=== PATIENT | male | born 1955 | race Caucasian/White ===

== ENCOUNTER → 2016-08-28 | Outpatient (CLI) | payer BC ==
[~2016-08-28] MED LIST: AMLO-110 PO; ESCI10TA17 PO; RAMI5CAP PO
--- NOTE | 2016-08-28 08:38 | DIAGNOSTIC IMAGING REPORT ---
FUSION CT SINUSES W/O HISTORY:61 [id number] Chronic sinusitis COMPARISON: 07/18/2011. TECHNIQUE: Multiple axial CT images of the paranasal sinuses were obtained without IV contrast utilizing fusion technique. Coronal reformatted images were obtained from the axial data set and cemented for review. FINDINGS: Large polypoid mucosal thickening of the right maxillary sinus is seen, 3.6 x 2.6 x 3.3 cm in AP, transverse and coronal caudal dimension. There is improved aeration of the right maxillary sinus from comparison. There is mild mucosal thickening of the right maxillary ostium medial complex which is patent. There is multifocal progressive polypoid mucosal thickening of the left maxillary sinus. Small air-fluid level of bubbly secretions noted within the dependent left maxillary sinus. The left maxillary ostiomeatal unit is patent. No Gerard cells are identified. Mild to moderate mucosal thickening is present within the ethmoid air cells bilaterally. The frontal and sphenoid sinuses are generally clear. The frontal ethmoidal and sphenoethmoidal recesses are patent. There is no significant deviation of the nasal septum. There is a small left cheng bullosa. Mastoid air cells and middle air cavities are clear. The imaged intracranial structures are unremarkable. The soft tissues are within normal limits. The nasopharynx is patent. IMPRESSION: 1. Large focus of polypoid mucosal thickening of the right maxillary sinus measures up to 3.6 cm. 2. Multifocal polypoid mucosal thickening of the left maxillary sinus with mild acute on chronic left maxillary sinus disease. These findings have progressed from study dated 07/18/2011. 3. No ostiomeatal occlusive pattern. 4. Small left cheng bullosa. The above report was generated using voice recognition software. It may contain grammatical, syntax or spelling errors. Electronically signed by: Froilan Funez 08/28/2016 8:36 AM Dictated Date/Time: 08/28/2016 8:24 AM
== END | disposition home or self-care (01) ==
LOC: C.CTS 08:04
DX: J32.9 Chronic sinusitis, unspecified (principal)

== ENCOUNTER → 2017-01-08 | Outpatient (CLI) | payer BC ==
[2017-01-08 13:41] LABS: BASO % 0.4 %; BASO ABS # 0.03 K/uL (0-0.2); COMPLETE YES; EOS % 2.7 %; HEMATOCRIT 49.2 % (42-52); IG% 0.6 %; LYMPH % 23.8 %; MEAN CELL VOLUME 94.3 fL (80-100); MEAN CORPUSCULAR HEMOGLOBIN 33.7 pg (25-34); MEAN CORPUSCULAR HGB CONC 35.8 g/dl (32-36); MONO % 8.6 %; NEUT % 63.9 %; PLATELET COUNT 257 K/uL (130-400); RED BLOOD COUNT 5.22 M/uL (4.7-6.1); WHITE BLOOD COUNT 6.73 K/uL (4.8-10.8)
[2017-01-08 13:56] LABS: ESTIMATED AVERAGE GLUCOSE 117 mg/dl; HA1C FLAG Normal (Normal)
[2017-01-08 14:20] LABS: URINE APPEARANCE CLEAR (CLEAR); URINE BILIRUBIN NEG (NEG); URINE COLOR DK YELLOW; URINE NITRITE NEG (NEG); URINE SPECIFIC GRAVITY 1.018 (1.000-1.030); UROBILINOGEN NEG (NEG)
[2017-01-08 14:21] LABS: ALT/SGPT 36 U/L (12-78); AST/SGOT 16 U/L (15-37); BLOOD UREA NITROGEN 19 mg/dl (7-18); BUN/CREATININE RATIO 13.9 (10-20); CALCIUM 8.4 mg/dl (8.5-10.1); CARBON DIOXIDE 30 mmol/L (21-32); CHLORIDE 101 mmol/L (98-107); CREATININE 1.35 mg/dl (0.60-1.40); GLUCOSE 93 mg/dl (70-99); POTASSIUM 3.7 mmol/L (3.5-5.1); SODIUM 138 mmol/L (136-145)
[2017-01-08 14:29] LABS: MANUAL MICROSCOPIC REQUIRED? NO; REVIEW REQ? NO
[2017-01-08 14:32] LABS: ALB/GLOB RATIO 1.1 (0.9-2); ALKALINE PHOSPHATASE 66 U/L (45-117); CHOLESTEROL 193 mg/dl (0-200); CHOLESTEROL/HDL RATIO 4.2; HDL CHOLESTEROL 46 mg/dl; LDL CHOLESTEROL CALCULATED 123 mg/dl; TRIGLYCERIDES 120 mg/dl (0-150); VERY LOW DENSITY LIPOPROT CALC 24 mg/dl
== END | disposition home or self-care (01) ==
LOC: C.LABBC 10:44
PROVIDERS: ATTEND Internal Medicine
DX: I10 Essential (primary) hypertension (principal); R73.01 Impaired fasting glucose

== ENCOUNTER → 2017-01-10 | Outpatient (CLI) | payer BC ==
[2017-01-10 17:48] LABS: URINE APPEARANCE CLEAR (CLEAR); URINE BILIRUBIN NEG (NEG); URINE COLOR YELLOW; URINE NITRITE NEG (NEG); URINE PH 5.5 (4.5-7.5); URINE SPECIFIC GRAVITY 1.022 (1.000-1.030); UROBILINOGEN NEG (NEG)
[2017-01-10 18:00] LABS: MANUAL MICROSCOPIC REQUIRED? NO; REVIEW REQ? NO
== END | disposition home or self-care (01) ==
LOC: C.LAB1850 16:13
PROVIDERS: ATTEND Internal Medicine
DX: R31.29 Other microscopic hematuria (principal)

== ENCOUNTER → 2017-03-02 | Day surgery (SDC) | payer BC ==
[2017-03-02] VITALS (7 sets, daily range): BP systolic 130–163; BP diastolic 85–117; PULSE 82–99; TEMP 36.7; O2SAT 98; Ht 172.7 cm; Wt 109.0 kg
[~2017-03-02] VITALS: Ht 172.7 cm; Wt 109.0 kg
[~2017-03-02] MED LIST changes: +APIX1TAB3 PO; +CLR10 PO; +DILT-113 PO; +FLVHFA110 INH; +HYDR0.75 PO; +LIDOCAINE HCL 2% 2 ML VIAL (20MG/ML) ONE; +MONT1TAB5 PO; +PROPOFOL IV EMULSION 10 MG/ML 20 ML VIAL IV ONE; +VGR50 PO
--- NOTE | 2017-03-02 07:36 | History & Physical Bridge Note ---
H&P Re-Evaluation Bridge Note: I have examined the patient, reviewed the History & Physical and in the interval since the performance of the History & Physical I have noted the following changes of clinical significance: Still in AF. On appropriate anticoagulation. No changes noted
--- NOTE | 2017-03-02 07:38 | Procedure Note ---
Procedure Note Date of Service Mar 02, 2017. Procedure Note Procedure performed: Cardioversion Indication: Atrial fibrillation Staff creative project manager: Sreekanth Carter MD Procedure in detail: The patient was informed of the risks benefits and alternatives to the intended procedure. He understood such which proceed. He was taken to the cardiac catheterization suite holding area. A general anesthetic was administered by the Anesthesiology Service. Once appropriately anesthetized, the patient was cardioverted using 200 joules delivered in a biphasic fashion. This returned the patient to sinus rhythm very briefly. He quickly returned to atrial fibrillation the procedure was repeated twice more with the same energy. However, the patient quickly returned to atrial fibrillation each time. The patient tolerated procedure well, there were no immediate complications. Patient was neurologically intact subsequent to the procedure. Impression: Cardioversion from atrial fibrillation to normal sinus rhythm with early return to atrial fibrillation
--- NOTE | 2017-03-02 08:10 | Discharge Instructions ---
Discharge Instructions Procedure Procedure Date: Mar 02, 2017. Reason for Visit: Atrial Fib. Discharge Discharge Date: Mar 02, 2017. Discharge Diagnosis: Atrial fibrillation Last Recorded Wt (Kilograms): 109 Anesthesia Post Anesthesia Instructions: If you have had General Anesthesia or IV Sedation: * Do not drive today. * Resume driving when surgeon permits. * Do not make important decisions or sign legal documents today. * Call surgeon for: 1. Temperature elevations greater than 101 degrees F. 2. Uncontrollable pain. 3. Excessive bleeding. 4. Persistent nausea and vomiting. 5. Medication intolerance (nausea, vomiting or rash). * For nausea and vomiting use only clear liquids such as: tea, soda, bouillon until nausea subsides, then gradually increase diet as tolerated. * If you have any concerns or questions, call your surgeon's office. If physician is unavailable and it is an emergency, call 911 or go to the nearest emergency room. Instructions Activity Recommendations: driving or machine use limit Return to School/Work: with the following limitations Recommended Home Diet: resume previous diet Allergies: Coded Allergies: Nitroglycerin (Verified Adverse Reaction, Unknown, DECREASED BP-CAUSED SYNCOPE, 12/15/15) FROM A STUDY - LOW BP AFTER ADMIN WHEN NORMOTENSIVE PER PT Provider Instructions No driving for 24 hours Follow Up Rosey Tapia Recommendations: Call your doctor if: * Temperature above 101 degrees * Pain not relieved by pain medicine ordered * There is increased drainage or redness from any incision * You have any unanswered questions or concerns. Your Doctors Instructions noted above were prepared by provider Tre Carter. Patient Signature Section: Patient Instructions Signature Page Adrian Mcgowan Patient (or Guardian) Signature/Date: I have read and understand the instructions given to me by my caregivers. Caregiver/RN/Doctor Signature/Date: The above-named patient and/or guardian has received patient instructions on this date. + Original Patient Signature Page (only) stays with chart. Please make copy for patient.
== END | disposition home or self-care (01) ==
LOC: C.CATH 06:26
PROVIDERS: ATTEND Internal Medicine Clinical Cardiac Electrophysiology
DX: I48.91 Unspecified atrial fibrillation (principal); F32.9 Major depressive disorder, single episode, unspecified; E78.5 Hyperlipidemia, unspecified; I10 Essential (primary) hypertension; E66.3 Overweight; Z68.33 Body mass index [BMI] 33.0-33.9, adult; Z79.899 Other long term (current) drug therapy; Z79.01 Long term (current) use of anticoagulants; Z82.2 Family history of deafness and hearing loss; Z82.49 Family history of ischemic heart disease and other diseases of the circulatory system

== ENCOUNTER → 2017-09-13 | Outpatient (CLI) | payer BC ==
[~2017-09-13] MED LIST changes: -AMLO-110 PO; -LIDOCAINE HCL 2% 2 ML VIAL (20MG/ML) ONE; -PROPOFOL IV EMULSION 10 MG/ML 20 ML VIAL IV ONE
--- NOTE | 2017-09-14 13:37 | POLYSOMNOGRAPH REPORT ---
CLINICAL DATA: A 62-year-old male with BMI of [address] Suhas Dewey for a CPAP titration study. He had a home sleep apnea test which showed obstructive sleep apnea. SLEEP ARCHITECTURE: Total sleep period was 432.5 minutes. Total sleep time was 390 minutes divided between 317 minutes of non-REM sleep and 73 minutes of REM sleep. Sleep onset latency was 24.5 minutes. REM latency was 229 minutes. Sleep efficiency was 85%. Wake after sleep onset was 42.5 minutes. Sleep consisted of stage N1 8%, stage N2 64%, stage N3 9%, and REM 19%. AROUSAL DATA: 77 arousals were recorded for an index of 12 per hour. PLM DATA: 85 limb movements during sleep were noted for an index of 13.1 per hour with arousal index of 1.2 per hour. RESPIRATORY DATA: The AHI was 3.8. There was 1 central apneic episode, 16.1 seconds in duration. There were 24 hypopneic episodes with a mean duration of 16.6 seconds. OXIMETRY DATA: Oxygen gaston was 84%. Mean saturation was 90%. Time below 88% was 12 minutes. EKG: Heart rates ranged from 57-105 beats per minute. Irregularly irregular rhythm consistent with atrial fibrillation was noted. PATIENT SCHEDULING COORDINATOR'S COMMENTS AND TREATMENT SUMMARY: The patient slept in the right, left, and supine positions. Bruxism was noted. CPAP was started using a ResMed Quattro Air size medium full face mask at 4 cm of water pressure and was titrated up to his final pressure setting of 13 cm of water pressure. At this final pressure setting, the patient slept for 139 minutes with an AHI of 1.7. IMPRESSION: Obstructive sleep apnea corrected with CPAP 13 cm of water pressure ResMed Quattro Air size medium full face mask. RECOMMENDATIONS: The patient should be started on the above-noted treatment regimen and seen back in followup within 90 days to document efficacy and compliance. [facility]
== END | disposition home or self-care (01) ==
LOC: C.NEUR 21:00
PROVIDERS: ATTEND Internal Medicine
DX: G47.33 Obstructive sleep apnea (adult) (pediatric) (principal)

== ENCOUNTER 2022-06-15 21:00 | Inpatient (IN) ==
--- NOTE | 2022-06-15 21:57 | Emergency Department Note ---
Impression & Plan Neck swelling ED Provider Note INFORMANT: Patient and ED PROVIDER(S): Dawson Apotne MD CHIEF COMPLAINT: Neck swelling PLAN: Disposition: Admitted Condition: Good Outpatient prescription management: none Referral: None MEDICAL DECISION MAKING: The patient was evaluated. His CBC and chemistry panels were unremarkable. The patient underwent CT imaging of the neck and where he was found to have a retropharyngeal fluid collection without definitive abscess. Fluid versus cellulitis noted in the neck/chest. Clinically the patient does not fit with a cellulitis. His white count is normal and his temperature is normal. The patient had a consultation placed with Dr. Simons of ENT. She evaluated the images and then presented to the emergency department. She did prescription the patient and noted that he did have some very mild edema. She recommended con tinuation of the Unasyn as ordered and IV Decadron. We did discuss possibility of angioedema. She recommended stopping the MIRANDA inhibitor. The patient and I discussed further management in the hospital and he was in agreement. in agreement as well. Consultation was made with Dr. Mehul Anthony of the [facility] service. Patient was evaluated in the ER for further management. ENT recommendations given to internal medicine. After review of the information above and other included data, I feel the patient requires further management in the hospital. Triage Nursing notes reviewed and agree them. Vital Signs: reviewed and remarkable for hypertension Prior /Outside records reviewed: none Differential diagnosis: Allergic reaction, anaphylaxis, angioedema, epiglottitis, retropharyngeal abscess, contact dermatitis, cellulitis, as well as other pathologies. Diagnostics, as interpreted by me: ECG: none Cardiac Monitoring: Cardiac monitoring ordered by me: The patient was placed on continuous cardiac monitoring and observed. It revealed a normal sinus rhythm at 80 beats per minute without ectopy or evidence of dysrhythmia. Medical decision rules: none Imaging studies: CT imaging as above. HPI: The patient is a 67year old male who presents to the Emergency Room with complaints of neck swelling. This started last night and is persisting. The patient also notes the following associated symptoms, nasal congestion. Patient states he has chronic problems with congestion and took Mucinex. Since taking that he feels like his neck is puffy anteriorly. The patient has taken no medication for relieving factors. Current pain is rated as 0/10. No prior history of the same. Feels like his voice is gravelly and he is snoring when he flexes his neck forward. Pt denies LOC, headache, fevers, chills, diaphoresis, visual changes, neck pain, chest pain, breathing difficulties, nausea, vomiting, abdominal pain rash, or other complaints. PAST MEDICAL HISTORY: See Below, A-fib, anticoagulated, hypertension PAST SURGICAL HISTORY: See Below, SOCIAL HISTORY: See Below, HOME MEDICATIONS: See Below ALLERGIES: See Below VITALS: See Below PHYSICAL EXAMINATION: GENERAL: Awake, alert, well-appearing, in no distress HENT: Normocephalic, atraumatic. Oropharynx unremarkable. EYES: Normal conjunctiva. Sclera non-icteric. NECK: Inspection normal. Non-tender. Supple. No nuchal rigidity. FROM. Mild fullness anteriorly but symmetric. Tongue normal. Floor the mouth soft. No watery edema. Uvula midline. RESPIRATORY: Clear to auscultation. No wheezes. No rales. Normal respiratory effort. CARDIAC: Normal rate. Normal rhythm. No murmurs. No rubs. Extremities warm and well perfused. Pulses equal. No JVD. GI: Soft, non-distended. No tenderness to palpation. No rebound or guarding. No masses. MUSCULOSKELETAL: Atraumatic. Chest examination reveals no tenderness. The back is symmetrical on inspection without obvious abnormality. There is no CVA tenderness to palpation. No joint edema. LOWER EXTREMITIES: Calves are equal size bilaterally and non-tender. 1+ edema. No discoloration. NEURO: Normal sensorium. No sensory or motor deficits noted. SKIN: No rash or jaundice noted. Past Med/Surg History Medical History Atrial fibrillation on eliquis, follows with Dr. Carter Cervical radiculopathy Chronic fatigue syndrome Chronic venous insufficiency Depression History of kidney stones Hyperlipidemia Hypertension Moderate obstructive sleep apnea cpap Nocturnal hypoxemia Obesity Renal insufficiency, mild Surgical History History of cardioversion unsuccessful History of colonoscopy with polypectomy History of tooth extraction History of wisdom tooth extraction S/P tonsillectomy and adenoids Family History Mother FH: deafness or hearing loss Hypertension Family history of diabetes mellitus Diabetes Grandmother FH: deafness or hearing loss Father Cancer Other No family history of adverse response to anesthesia Denies family history of Ovarian cancer Prostate cancer Myocardial infarction Breast cancer Lung cancer Colorectal cancer Stroke Social History Smoking Status: Never smoker Second Hand Exposure: Yes (father smoked); Do You Dip or Chew Tobacco: No; Hx Alcohol Use: Yes Alcohol type: beer and hard liquor Alcohol Intake Frequency: 2-4 x/Month Alcohol Intake Frequency Comment: social Hx Substance Use: No Preferred Language: Macedonian Communication Ability: Effective Visual Impairment: Partially Limited Hearing Ability: Normal Watch Supervisor Required: No Beliefs That Will Affect Care: None marital status: Life Partner Current Living Situation: Significant Other current occupational status: employed current occupation: Deputy [employer] How many Children do You have: 1 Feels Safe at Home: Yes Childhood Exposure to Second-Hand Smoke: Yes caffeine: Yes during the past year weight has: remained stable Dental Care, Regularly: Yes Physical Activity Frequency: Does not Exercise Seatbelt Use: always Sunscreen Use: Yes Assistive Devices: CPAP and Glasses Allergies Allergies Allergy/AdvReac Type Severity Reaction Status Date / Time nitroglycerin AdvReac Severe DECREASED Verified 06/15/22 21:35 BP-CAUSED SYNCOPE Home Meds Home Medications Medication Instructions Recorded Confirmed ammonium lactate 12 % topical cream 1 appln topical BID PRN Rash #1 g 08/17/18 06/15/22 ketoconazole 2 % topical cream 1 appln topical BID PRN Rash 04/03/19 06/15/22 loratadine 10 mg tablet 10 mg PO QAM #30 tabs 04/10/19 06/15/22 triamcinolone acetonide 0.1 % 1 applic topical DAILY PRN Skin 06/06/22 06/15/22 topical cream Irritation apixaban 5 mg tablet (Eliquis) 5 mg PO BID 06/15/22 06/15/22 diltiazem HCl 240 mg capsule,24 240 mg PO DAILY 06/15/22 06/15/22 hr,extended release escitalopram oxalate 10 mg tablet 10 mg PO DAILY 06/15/22 06/15/22 fluticasone propionate 50 2 spray intranasal DAILY 06/15/22 06/15/22 mcg/actuation nasal spray,suspension montelukast 10 mg tablet 10 mg PO DAILY 06/15/22 06/15/22 ramipril 5 mg capsule 10 mg PO DAILY 06/15/22 06/15/22 rosuvastatin 10 mg tablet 10 mg PO HS 06/15/22 06/15/22 Previous Rx's Medication Instructions Recorded hydrocodone-homatropine 5 mg-1.5 5 ml PO Q6H PRN cough #473 mL 09/16/18 mg/5 mL oral syrup sildenafil 100 mg tablet 100 mg PO DAILY PRN Sexual 04/22/20 Activity #30 tabs clotrimazole-betamethasone 1 1 applic topical BID PRN 12/15/21 %-0.05 % topical cream intertrigo #45 grams Results & Data (ED) Vital Signs Vital Signs - 24 hr 06/15/22 21:04 06/15/22 21:50 06/15/22 22:53 Temperature 36.4 C L Temperature Source Temporal Artery Scan Pulse Rate 87 75 Pulse Rate [Apical] 78 Respiratory Rate 16 18 18 Respiratory Effort / Characteristics Non-Labored Spontaneous Respiratory Depth Normal Blood Pressure 182/108 H Blood Pressure [Right Arm] 147/104 H Blood Pressure Mean 132 Blood Pressure Mean [Right Arm] 118 Blood Pressure Position Sitting Blood Pressure Position [Right Arm] Pulse Oximetry 96 95 94 Oxygen Delivery Method Room Air Room Air Room Air Sepsis Recent Fever Within 48 Hours No Sepsis New/Unexplained Change in Mental Status N/A Sepsis Action Taken by Nursing No Action Required 06/15/22 21:20 06/16/22 00:32 Temperature Temperature Source Pulse Rate 78 Pulse Rate [Apical] 80 Respiratory Rate 16 Respiratory Effort / Characteristics Non-Labored Spontaneous Respiratory Depth Normal Blood Pressure Blood Pressure [Right Arm] 173/95 H Blood Pressure Mean Blood Pressure Mean [Right Arm] 121 Blood Pressure Position Blood Pressure Position [Right Arm] Sitting Pulse Oximetry 94 Oxygen Delivery Method Room Air Sepsis Recent Fever Within 48 Hours Sepsis New/Unexplained Change in Mental Status Sepsis Action Taken by Nursing Laboratory Data 06/15/22 21:58 06/15/22 21:58 Lab Results 06/15/22 06/15/22 06/15/22 Range/Units 21:58 21:58 21:58 WBC 8.44 (4.8-10.8) K/ul RBC 5.06 (4.70-6.10) M/uL Hgb 16.8 (14.0-18.0) g/dl Hct 47.6 (42.0-52.0) % MCV 94.1 (80.0-100.0) fL MCH 33.2 (25.0-34.0) pg MCHC 35.3 (32.0-36.0) g/dL RDW Std Deviation 44.4 (36.4-46.3) fL RDW Coeff of Nesha 13.1 (11.5-14.5) % Plt Count 223 (130-400) K/uL MPV 8.7 L (9.4-12.4) fL Immature Gran % (Auto) 0.2 % Neut % (Auto) 66.0 % Lymph % (Auto) 22.4 % Trego % (Auto) 8.9 % Eos % (Auto) 1.9 % Baso % (Auto) 0.6 % Neut # (Auto) 5.57 (1.40-6.50) K/uL Lymph # (Auto) 1.89 (1.2-3.4) K/uL Trego # (Auto) 0.75 H (0.11-0.59) K/uL Eos # (Auto) 0.16 (0-0.50) K/uL Baso # (Auto) 0.05 (0-0.2) K/uL Immature Gran # (Auto) 0.02 (0.01-0.20) K/uL Sodium 138 (136-145) mmol/L Potassium 3.9 (3.5-5.1) mmol/L Chloride 104 (98-107) mmol/L Carbon Dioxide 30 (21-32) mmol/L Anion Gap 4 (3-11) BUN 25 H (6-23) mg/dl Creatinine 1.44 H (0.6-1.4) mg/dl Est Cr Clr Drug Dosing 62.6 ml/min Est GFR ( Amer) 57.4 ml/min Est GFR (Non-Af Amer) 49.5 ml/min BUN/Creatinine Ratio 17.4 (10-20) Glucose 91 (70-99(Fasting)) mg/dl Calcium 9.0 (8.6-10.3) mg/dl Total Bilirubin 0.7 (0.2-1.0) mg/dl AST 23 (13-39) U/L ALT 26 (7-52) U/L Alkaline Phosphatase 59 (34-104) U/L C-Reactive Protein 0.77 H (0-0.5) mg/dl Total Protein 6.8 (6.0-8.3) gm/dl Albumin 4.1 (3.4-5.0) gm/dl Globulin 2.7 (2.5-4.0) gm/dl Albumin/Globulin Ratio 1.5 (0.9-2) Procalcitonin < 0.05 (0-0.5) ng/ml Adenovirus (PCR) (NotDetected) B. pertussis DNA (PCR) (NotDetected) B.parapertussis DNA PCR (NotDetected) C. pneumoniae DNA (PCR) (NotDetected) Coronavirus OC43 (PCR) (NotDetected) Coronavirus HKU1 (PCR) (NotDetected) Coronavirus 229E (PCR) (NotDetected) SARS-CoV-2 (PCR) (NotDetected) Coronavirus NL63 (PCR) (NotDetected) Human Metapneumovir PCR (NotDetected) Influenza Type A (PCR) (NotDetected) Influenza Type B (PCR) (NotDetected) M. pneumoniae (PCR) (NotDetected) Parainfluenza 1 (PCR) (NotDetected) Parainfluenza 2 (PCR) (NotDetected) Parainfluenza 3 (PCR) (NotDetected) Parainfluenza 4 (PCR) (NotDetected) RSV (PCR) (NotDetected) Entero/Rhino (PCR) (NotDetected) 06/15/22 Range/Units 23:30 WBC (4.8-10.8) K/ul RBC (4.70-6.10) M/uL Hgb (14.0-18.0) g/dl Hct (42.0-52.0) % MCV (80.0-100.0) fL MCH (25.0-34.0) pg MCHC (32.0-36.0) g/dL RDW Std Deviation (36.4-46.3) fL RDW Coeff of Nesha (11.5-14.5) % Plt Count (130-400) K/uL MPV (9.4-12.4) fL Immature Gran % (Auto) % Neut % (Auto) % Lymph % (Auto) % Trego % (Auto) % Eos % (Auto) % Baso % (Auto) % Neut # (Auto) (1.40-6.50) K/uL Lymph # (Auto) (1.2-3.4) K/uL Trego # (Auto) (0.11-0.59) K/uL Eos # (Auto) (0-0.50) K/uL Baso # (Auto) (0-0.2) K/uL Immature Gran # (Auto) (0.01-0.20) K/uL Sodium (136-145) mmol/L Potassium (3.5-5.1) mmol/L Chloride (98-107) mmol/L Carbon Dioxide (21-32) mmol/L Anion Gap (3-11) BUN (6-23) mg/dl Creatinine (0.6-1.4) mg/dl Est Cr Clr Drug Dosing ml/min Est GFR ( Amer) ml/min Est GFR (Non-Af Amer) ml/min BUN/Creatinine Ratio (10-20) Glucose (70-99(Fasting)) mg/dl Calcium (8.6-10.3) mg/dl Total Bilirubin (0.2-1.0) mg/dl AST (13-39) U/L ALT (7-52) U/L Alkaline Phosphatase (34-104) U/L C-Reactive Protein (0-0.5) mg/dl Total Protein (6.0-8.3) gm/dl Albumin (3.4-5.0) gm/dl Globulin (2.5-4.0) gm/dl Albumin/Globulin Ratio (0.9-2) Procalcitonin (0-0.5) ng/ml Adenovirus (PCR) Not Detected (NotDetected) B. pertussis DNA (PCR) Not Detected (NotDetected) B.parapertussis DNA PCR Not Detected (NotDetected) C. pneumoniae DNA (PCR) Not Detected (NotDetected) Coronavirus OC43 (PCR) Not Detected (NotDetected) Coronavirus HKU1 (PCR) Not Detected (NotDetected) Coronavirus 229E (PCR) Not Detected (NotDetected) SARS-CoV-2 (PCR) Not Detected (NotDetected) Coronavirus NL63 (PCR) Not Detected (NotDetected) Human Metapneumovir PCR Not Detected (NotDetected) Influenza Type A (PCR) Not Detected (NotDetected) Influenza Type B (PCR) Not Detected (NotDetected) M. pneumoniae (PCR) Not Detected (NotDetected) Parainfluenza 1 (PCR) Not Detected (NotDetected) Parainfluenza 2 (PCR) Not Detected (NotDetected) Parainfluenza 3 (PCR) Not Detected (NotDetected) Parainfluenza 4 (PCR) Not Detected (NotDetected) RSV (PCR) Not Detected (NotDetected) Entero/Rhino (PCR) Not Detected (NotDetected) Administered Medications Discontinued Medications Dexamethasone Sodium Phosphate (DexamethasonePf 10 Mg/Ml Vial) 10 mg IV NOW ONE Stop: 06/15/22 23:33 Last Admin: 06/15/22 23:52 Dose: 10 mg Documented By: MYRA Ampicillin Sodium/Sulbactam Sodium 3,000 mg/ Sodium Chloride 108 mls @ 200 mls/hr IV NOW STA; Protocol Stop: 06/15/22 23:52 Last Infusion: 06/16/22 00:32 Dose: 0 mls/hr Documented By: Admin: 06/15/22 23:55 Dose: 200 mls/hr Documented By: MYRA Ioversol (Optiray 320 100ml) 100 ml IV ONCE ONE Stop: 06/15/22 22:40 Last Admin: 06/15/22 22:39 Dose: 90 ml Documented By: SELMA Imaging Data Radiologist's Impression: Soft Tissue Neck CT 06/15/22 21:52 Exam(s): CT NECK With Contrast IV Amt: 90 ml optiray 320 EXAM: CT Neck With Intravenous Contrast CLINICAL HISTORY: Reason for exam: neck swelling. TECHNIQUE: Axial computed tomography images of the neck with intravenous contrast. Automated exposure control was utilized for the study. A dose lowering technique was utilized adhering to the principles of ALARA. CONTRAST: Patient received 90 ml optiray 320 of IV contrast COMPARISON: None. FINDINGS: Oropharynx: No significant tonsillar enlargement. No peritonsillar abscess. Hypopharynx: Unremarkable. Larynx: Normal epiglottis. Trachea: Unremarkable. Retropharyngeal space: Large retropharyngeal effusion measuring up to 17 mm in thickness. Submandibular/parotid glands: Glands are normal in size. Thyroid: No enlarged or calcified nodules. Bones/joints: Moderate to severe degenerative change of the cervical spine. No acute fracture. Soft tissues: Diffuse fat stranding of the visualized left chest supraclavicular fossa. Diffuse fat stranding in the anterior neck with mild thickening of the right platysma muscle. Vasculature: No acute findings. Lymph nodes: Unremarkable. No lymphadenopathy. Sinuses: Polypoid soft tissue in the right maxillary sinus. Lung apices: Unremarkable as visualized. IMPRESSION: 1. Large retropharyngeal effusion measuring up to 17 mm in thickness. No evidence of calcific tendinitis or internal jugular vein thrombosis. Please note, while there are no imaging features typically associated with abscess such as well-defined rim enhancement or internal air, infection/developing abscess cannot entirely be excluded. Clinical correlation is recommended. 2. Nonspecific fat stranding of the neck and left chest. This could be seen with infection such as cellulitis. No internal jugular vein thrombus is seen. Clinical correlation is recommended. Electronically signed by: Triston Nielsen MD 06/15/22 23:05 PM Discharge Plan Visit Data Chief Complaint: Neck Injury/Pain Stated Complaint: NECK SWOLLEN/PAIN ED Provider: Dawson Aponte Discharge Problem: Neck swelling Patient Disposition: Admitted As Inpatient Discharge Instructions Interventions: ED Discharge Assessment Last Done: 06/16/22 01:20
[2022-06-15 22:14] LABS: Basophils # (auto) 0.05 K/uL (0-0.2); Basophils % (auto) 0.6 %; Eosinophils # (auto) 0.16 K/uL (0-0.50); Eosinophils % (auto) 1.9 %; Hematocrit (blood only) 47.6 % (42.0-52.0); Hemoglobin 16.8 g/dl (14.0-18.0); Immature Granulocytes # (auto) 0.02 K/uL (0.01-0.20); Immature Granulocytes % (auto) 0.2 %; Lymphocytes # (auto) 1.89 K/uL (1.2-3.4); Lymphocytes % (auto) 22.4 %; Mean Corpuscular Hemoglobin 33.2 pg (25.0-34.0); Mean Corpuscular Hgb Conc 35.3 g/dL (32.0-36.0); Mean Corpuscular Volume 94.1 fL (80.0-100.0); Mean Platelet Volume 8.7 fL (9.4-12.4); Monocytes # (auto) 0.75 K/uL (0.11-0.59); Monocytes % (auto) 8.9 %; Neutrophils # (auto) 5.57 K/uL (1.40-6.50); Platelet Count 223 K/uL (130-400); RDW Coefficient of Variation 13.1 % (11.5-14.5); RDW Standard Deviation 44.4 fL (36.4-46.3); Red Blood Count 5.06 M/uL (4.70-6.10); White Blood Count 8.44 K/ul (4.8-10.8)
[2022-06-15 22:30] LABS: Albumin Globulin Ratio 1.5 (0.9-2); Albumin Level 4.1 gm/dl (3.4-5.0); BUN Creatinine Ratio 17.4 (10-20); Bilirubin,Total 0.7 mg/dl (0.2-1.0); Creatinine Clr Calc Pharmacy 62.6 ml/min; Est GFR (African American) 57.4 ml/min; Est GFR (Non-African American) 49.5 ml/min; Globulin 2.7 gm/dl (2.5-4.0); Potassium 3.9 mmol/L (3.5-5.1); Total Protein 6.8 gm/dl (6.0-8.3)
[2022-06-15] MEDS ORDERED: OPTIRAY 320 100ml IV ONE (22:39)
--- NOTE | 2022-06-15 23:07 | CT Scan Report ---
Exam(s): CT NECK With Contrast IV Amt: 90 ml optiray 320 EXAM: CT Neck With Intravenous Contrast CLINICAL HISTORY: Reason for exam: neck swelling. TECHNIQUE: Axial computed tomography images of the neck with intravenous contrast. Automated exposure control was utilized for the study. A dose lowering technique was utilized adhering to the principles of ALARA. CONTRAST: Patient received 90 ml optiray 320 of IV contrast COMPARISON: None. FINDINGS: Oropharynx: No significant tonsillar enlargement. No peritonsillar abscess. Hypopharynx: Unremarkable. Larynx: Normal epiglottis. Trachea: Unremarkable. Retropharyngeal space: Large retropharyngeal effusion measuring up to 17 mm in thickness. Submandibular/parotid glands: Glands are normal in size. Thyroid: No enlarged or calcified nodules. Bones/joints: Moderate to severe degenerative change of the cervical spine. No acute fracture. Soft tissues: Diffuse fat stranding of the visualized left chest supraclavicular fossa. Diffuse fat stranding in the anterior neck with mild thickening of the right platysma muscle. Vasculature: No acute findings. Lymph nodes: Unremarkable. No lymphadenopathy. Sinuses: Polypoid soft tissue in the right maxillary sinus. Lung apices: Unremarkable as visualized. IMPRESSION: 1. Large retropharyngeal effusion measuring up to 17 mm in thickness. No evidence of calcific tendinitis or internal jugular vein thrombosis. Please note, while there are no imaging features typically associated with abscess such as well-defined rim enhancement or internal air, infection/developing abscess cannot entirely be excluded. Clinical correlation is recommended. 2. Nonspecific fat stranding of the neck and left chest. This could be seen with infection such as cellulitis. No internal jugular vein thrombus is seen. Clinical correlation is recommended. Electronically signed by: Triston Nielsen MD 06/15/22 23:05 PM
[2022-06-15] MEDS ORDERED: AMPICILLIN/SULBACTAM SOD 3,000 MG in 0.9 % SODIUM CHLORIDE 100 ML IV STA (23:20)
[2022-06-15] MEDS ORDERED: dexAMETHasone**PF** 10 MG/ML VIAL IV ONE (23:32)
--- NOTE | 2022-06-16 00:18 | History & Physical Report ---
Date of Service June 16, 2022 Assessment & Plan (1) Neck swelling: Plan: 67 year old male w/ PmHx A. fib on Eliquis, HTN, LETI on CPAP, Chronic venous insufficiency, CKD stage III, HLD admitted for retropharyngeal effusion/concern for infection. Neck Swelling: -Blood work unremarkable, vitals stable. -CT Soft tissue neck w/ large retropharyngeal effusion measuring 17mm in thickness without jugular vein thrombosis. -Some elements of fat stranding seen on CT suggestive of possible skin infection at left chest supraclavicular fossa and anterior neck. -Will obtain MRSA nasal swab to check for possible MRSA cellulitis as possible source. -Given 10mg Dexamethasone, 3g Unasyn in the Ed. -ENT bedside scoped patient, recommended continued Unasyn q6h IV, dexamethasone 10mg x3 q8h, hold ACEI. -Can consider steroid taper after 3 doses of dexamethasone. -Questionable origin of swelling, infection vs allergic/reactive vs drug induced. -Appreciate ENT recs, continue antibiotic, steroid, hold ramipril. -Continue to monitor on telemetry. A. Fib: -Patient on Diltiazem 240mg daily and Eliquis 5mg BID at home. -In the setting of holding patient's Ramipril may be necessary to move to BID dosing of the diltiazem. CKD stage III/MOISES: -Creatinine baseline 1.30-1.34, eGFR 54. -This admission creatinine 1.44, eGFR 49.5. -Will hold ACEI as above in setting of worsened kidney function. -Continue to trend with AM BMP. Chronic Venous insufficiency: -Pitting edema on exam. -Ordered SCDs, recommend compression stockings or pants from sports store for outpatient use. Raynaud: -History of Raynaud worse in the winter with cracks at fingers. -Noted, if needed can give moisturizer. HTN: -Hold ACEI as above, continue diltiazem. HLD: -Continue home statin. Depression: -Continue home escitalopram. F/E/N/GI: Regular diet, patient without difficulty eating or drinking. DVT Prophylaxis: Eliquis BID. Code status: Full code. Dispo: Telemetry. (2) Atrial fibrillation: (3) CKD (chronic kidney disease), stage III: (4) Chronic venous insufficiency: (5) Hyperlipidemia: (6) Hypertension: (7) Depression: History of Present Illness Chief Complaint: Throat swelling/distention Primary Care Provider: Suhas Dewey MD Adrian is a 67 year old male w/ PmHx A. fib on Eliquis, HTN, LETI on CPAP, Chron ic venous insufficiency, CKD stage III, HLD coming into the hospital for a day of throat swelling/distention. Patient states that he has a history of chronic sinus congestion and postnasal drip, he's seen ENT in the past years ago but mainly follows with PCP. Patient states he was at his usual level of sinus congestion and postnasal drip when the night prior he started to notice he was giving off sonic reverberations ede to snoring when tilting his head forward. He decided to take Mucinex at that time to help clear the mucous in the area. He stated throughout the day earlier he also noticed increased neck distention. He states his neck is as wide as his head when it usually is not. He had not had any exposure to any new foods, no tick exposures or grassland exposures. He denies any birds, cats, or dogs at home. In the ED CBC, CMP, procal unremarkable. CT soft tissue neck showed large retropharyngeal effusion measuring up to 17mm in thickness without evidence of jugular vein thrombosis. Nonspecific fat stranding of neck and left chest noted. He was given a dose of dexamethasone 10mg and 3g Unasyn. Dr. Simons had evaluated him as well with bedside scope. Allergies Allergy/AdvReac Type Severity Reaction Status Date / Time nitroglycerin AdvReac Severe DECREASED Verified 06/15/22 21:35 BP-CAUSED SYNCOPE Home Medications Medication Instructions Recorded Confirmed Type ammonium lactate 12 % topical cream 1 appln topical BID PRN Rash #1 g 08/17/18 06/15/22 History hydrocodone-homatropine 5 mg-1.5 5 ml PO Q6H PRN cough #473 mL 09/16/18 06/15/22 Rx mg/5 mL oral syrup ketoconazole 2 % topical cream 1 appln topical BID PRN Rash 04/03/19 06/15/22 History loratadine 10 mg tablet 10 mg PO QAM #30 tabs 04/10/19 06/15/22 History sildenafil 100 mg tablet 100 mg PO DAILY PRN Sexual 04/22/20 06/15/22 Rx Activity #30 tabs clotrimazole-betamethasone 1 1 applic topical BID PRN 12/15/21 06/15/22 Rx %-0.05 % topical cream intertrigo #45 grams triamcinolone acetonide 0.1 % 1 applic topical DAILY PRN Skin 06/06/22 06/15/22 History topical cream Irritation apixaban 5 mg tablet (Eliquis) 5 mg PO BID 06/15/22 06/15/22 History diltiazem HCl 240 mg capsule,24 240 mg PO DAILY 06/15/22 06/15/22 History hr,extended release escitalopram oxalate 10 mg tablet 10 mg PO DAILY 06/15/22 06/15/22 History fluticasone propionate 50 2 spray intranasal DAILY 06/15/22 06/15/22 History mcg/actuation nasal spray,suspension montelukast 10 mg tablet 10 mg PO DAILY 06/15/22 06/15/22 History rosuvastatin 10 mg tablet 10 mg PO HS 06/15/22 06/15/22 History dexamethasone 4 mg tablet 4 mg PO DAILY 3 days #6 tabs 06/16/22 Rx losartan 25 mg tablet 25 mg PO QAM 30 days #30 tabs 06/16/22 Rx Past Med/Surg History Medical History Atrial fibrillation on eliquis, follows with Dr. Carter Cervical radiculopathy Chronic fatigue syndrome Chronic venous insufficiency Depression History of kidney stones Hyperlipidemia Hypertension Moderate obstructive sleep apnea cpap Nocturnal hypoxemia Obesity Renal insufficiency, mild Surgical History History of cardioversion unsuccessful History of colonoscopy with polypectomy History of tooth extraction History of wisdom tooth extraction S/P tonsillectomy and adenoids Family History Mother FH: deafness or hearing loss Hypertension Family history of diabetes mellitus Diabetes Grandmother FH: deafness or hearing loss Father Cancer Other No family history of adverse response to anesthesia Denies family history of Ovarian cancer Prostate cancer Myocardial infarction Breast cancer Lung cancer Colorectal cancer Stroke Social History Smoking Status: Never smoker Second Hand Exposure: Yes; Do You Dip or Chew Tobacco: No; Hx Alcohol Use: Yes Alcohol type: beer Alcohol Intake Frequency: 2-4 x/Month A lcohol Intake Frequency Comment: social Hx Substance Use: No Preferred Language: [place] Verdean Communication Ability: Effective Visual Impairment: Partially Limited Hearing Ability: Normal Solar Mechanical Engineer Required: No Beliefs That Will Affect Care: None marital status: Life Partner Current Living Situation: Significant Other current occupational status: employed current occupation: [employer] How many Children do You have: 1 Other Information That Helps Us Care for You: No Feels Safe at Home: Yes Safety Concerns: Feels Safe At This Time Childhood Exposure to Second-Hand Smoke: Yes caffeine: Yes during the past year weight has: remained stable Dental Care, Regularly: Yes Physical Activity Frequency: Does not Exercise Seatbelt Use: always Sunscreen Use: Yes Assistive Devices: Glasses Review of Systems Review of Systems: As per HPI. Physical Exam Constitutional: WD/WN, vitals as above Neck: Retropharyngeal swelling palpable from lateral neck. No pronounced lymphadenopathy elsewhere. Respiratory: normal respiratory effort, lungs clear to auscultation Cardiovascular: Rate/Rhythm: + irregularly irregular Heart Sounds: normal S1 and normal S2 2+ pitting edema at lower extremities. Gastrointestinal (Abdomen): normal bowel sounds, soft, nontender, no hepatosplenomegaly Skin: Decreased color to the nailbeds (patient w/ hx Geoffrey) Psychiatric: A+Ox3, euthymic affect Results & Data Results & Data Vital Signs (Past 12 Hours) Vital Signs Temp Pulse Pulse Resp BP BP Pulse Ox 06/15/22 21:20 78 06/15/22 22:53 78 18 147/104 H 94 06/15/22 21:50 75 18 95 06/15/22 21:04 36.4 C L 87 16 182/108 H 96 O2 Del Method 06/15/22 21:20 06/15/22 22:53 Room Air 06/15/22 21:50 Room Air 06/15/22 21:04 Room Air Supervising Physician Co-Signing Physician Notes Attending addendum: I have physically seen this patient, have supervised the medical residents activities, and agree with the H&P unless as otherwise noted. Assessment and Plan: Retropharyngeal effusion/painful neck- CT soft tissue neck with large retropharyngeal effusion measuring 17 mm in thickness without jugular venous thrombosis Associated possible skin infection at left chest supraclavicular fossa and anterior neck Given dexamethasone 10 mg IV and Unasyn 3 g ID from the ED Continue dexamethasone 10 mg IV every 8 hours x3, and Unasyn 6 g IV every 6 hours Hold MIRANDA inhibitor ramipril per recommendation of ENT Dr. Simons Monitor on telemetry Atrial fibrillation/hypertension- Continue diltiazem 240 mg daily and apixaban 5 mg p.o. twice daily Would likely need to increase diltiazem CD dosing to twice daily, in light of holding of ramipril as above Acute kidney injury on CKD stage III- Creatinine 1.44, with base 1.30-1.34 Holding MIRANDA inhibitor Gentle hydration with normal saline Recheck laboratories in a.m. Raynaud's- Significantly pale nailbeds, and history of severe cracking of fingers in the wintertime We will need to be addressing some additional form of vasodilation for preventative treatment Hyperlipidemia- Continue rosuvastatin Remaining orders and notations as noted Resident Activity Tracking Resident Involvement: Resident Care Provided Care Provided: Adult Hospital Medicine (2) Atrial fibrillation Atrial fibrillation type: permanent Qualified Code(s): I48.2 - Chronic atrial fibrillation (6) Hypertension Hypertension type: essential hypertension Qualified Code(s): I10 - Essential (primary) hypertension
--- NOTE | 2022-06-16 00:21 | ENT Consultation ---
Date of Consultation June 16, 2022 Assessment & Plan (1) Neck swelling: Plan 67yM with globus sensation and neck swelling. Exam including FFL shows mild to moderate edema of the bilateral arytenoids/postcricoid space. The airway is widely patent. CT neck shows significant retropharyngeal edema without drainable fluid collection, as well as edema/?fluid of the R anterior neck with soft tissue stranding. DDx includes infectious (cellulitis, developing RP infection, supraglottitis) vs. angioedema vs. allergic reaction. -Admit to medicine -Continuous pulse ox -OK for clears or full liquids -Unasyn -Decadron 10mg Q8H -Would consider switching MIRANDA-I to ARB -Please call with change in symptoms - increasing swelling, dysphagia, throat pain, voice change, or respiratory symptoms/stridor History of Present Illness History of Present Illness 67yM seen for evaluation of throat swelling. Noted significant globus sensation which he attributed to mucous yesterday. Persisted/worsened today. No throat pain, dysphagia, odynophagia. Notes some gravelly quality to voice. No dyspnea or stridor. Does note stertorous breathing with neck flexion. No inciting events. No new meds aside from a statin. On ramipril 10mg, longstanding. No new exposures. Never smoker No prior throat surgeries aside from T+A. No prolonged intubation. No previous history of similar symptoms. WBC normal. CT neck with contrast showed per my read diffuse retropharyngeal edema without fluid collection or rim-enhancement, area of soft tissue fullness of the supraglottis just above the glottis. Subplatysmal stranding and hypodens ity R anterior neck with rim enhancement or obvious fluid collection. Heterogeneous secretions R maxillary sinus Allergies Allergy/AdvReac Type Severity Reaction Status Date / Time nitroglycerin AdvReac Severe DECREASED Verified 06/15/22 21:35 BP-CAUSED SYNCOPE Home Medications Medication Instructions Recorded Confirmed Type ammonium lactate 12 % topical cream 1 appln topical BID PRN Rash #1 g 08/17/18 06/15/22 History hydrocodone-homatropine 5 mg-1.5 5 ml PO Q6H PRN cough #473 mL 09/16/18 06/15/22 Rx mg/5 mL oral syrup ketoconazole 2 % topical cream 1 appln topical BID PRN Rash 04/03/19 06/15/22 History loratadine 10 mg tablet 10 mg PO QAM #30 tabs 04/10/19 06/15/22 History sildenafil 100 mg tablet 100 mg PO DAILY PRN Sexual 04/22/20 06/15/22 Rx Activity #30 tabs clotrimazole-betamethasone 1 1 applic topical BID PRN 12/15/21 06/15/22 Rx %-0.05 % topical cream intertrigo #45 grams triamcinolone acetonide 0.1 % 1 applic topical DAILY PRN Skin 06/06/22 06/15/22 History topical cream Irritation apixaban 5 mg tablet (Eliquis) 5 mg PO BID 06/15/22 06/15/22 History diltiazem HCl 240 mg capsule,24 240 mg PO DAILY 06/15/22 06/15/22 History hr,extended release escitalopram oxalate 10 mg tablet 10 mg PO DAILY 06/15/22 06/15/22 History fluticasone propionate 50 2 spray intranasal DAILY 06/15/22 06/15/22 History mcg/actuation nasal spray,suspension montelukast 10 mg tablet 10 mg PO DAILY 06/15/22 06/15/22 History ramipril 5 mg capsule 10 mg PO DAILY 06/15/22 06/15/22 History rosuvastatin 10 mg tablet 10 mg PO HS 06/15/22 06/15/22 History Patient History Medical History Atrial fibrillation on eliquis, follows with Dr. Carter Cervical radiculopathy Chronic fatigue syndrome Chronic venous insufficiency Depression History of kidney stones Hyperlipidemia Hypertension Moderate obstructive sleep apnea cpap Nocturnal hypoxemia Obesity Renal insufficiency, mild Surgical History History of cardioversion unsuccessful History of colonoscopy with polypectomy History of tooth extraction History of wisdom tooth extraction S/P tonsillectomy and adenoids Family History Mother FH: deafness or hearing loss Hypertension Family history of diabetes mellitus Diabetes Grandmother FH: deafness or hearing loss Father Cancer Other No family history of adverse response to anesthesia Denies family history of Ovarian cancer Prostate cancer Myocardial infarction Breast cancer Lung cancer Colorectal cancer Stroke Social History Smoking Status: Never smoker Second Hand Exposure: Yes (father smoked); Do You Dip or Chew Tobacco: No; Hx Alcohol Use: Yes Alcohol type: beer and hard liquor Alcohol Intake Frequency: 2-4 x/Month Alcohol Intake Frequency Comment: social Hx Substance Use: No Preferred Language: Welsh Communication Ability: Effective Visual Impairment: Partially Limited Hearing Ability: Normal Clean Up Worker Required: No Beliefs That Will Affect Care: None marital status: Life Partner Current Living Situation: Significant Other current occupational status: employed current occupation: [employer] How many Children do You have: 1 Feels Safe at Home: Yes Childhood Exposure to Second-Hand Smoke: Yes caffeine: Yes during the past year weight has: remained stable Dental Care, Regularly: Yes Physical Activity Frequency: Does not Exercise Seatbelt Use: always Sunscreen Use: Yes Assistive Devices: CPAP and Glasses Review of Systems Review of Systems: A 10 point ROS is negative except as noted above Physical Exam Physical Exam: General: No acute distress, nonlabored respirations, no stridor Face: normal facial motion Eyes: Extraocular motion is intact. Normal sclera and conjunctiva Ears: External auditory canals are clear. Tympanic membrane is intact and the middle ear is aerated bilaterally. Nose: no external deformity, nares patent. No rhinorrhea or epistaxis. Mild septal deviation right Oral cavity: clear Oropharynx: clear, tonsils absent. Mild fullness posterior pharyngeal wall without erythema Neck: soft, no masses or lymphadenopathy Full ROM without pain. No fluctuance or overlying skin changes Procedure: Flexible fiberoptic laryngoscopy Indication: globus sensation Details: Following the topical application of afrin and lidocaine, the flexible laryngoscope was inserted into the nasal cavity. The septum, turbinates, and nasal mucosa were normal. The nasopharynx was normal. The palatine tonsils were absent bilaterally. The base of tongue and vallecula were normal. The epiglottis, bilateral aryepiglottic folds, and bilateral false vocal folds were normal. There was mild to moderate watery edema of the bilateral arytenoid mucosa/postcricoid space. The true vocal folds were normal without masses or lesions. There was normal mobility of the true vocal folds bilaterally. The airway was widely patent. The bilateral pyriform sinuses and postcricoid space was normal. There was no pooling of secretions. No aspiration or penetration was visualized. The patient tolerated the procedure well. Results & Data Vital Signs (Past 12 Hours) Vital Signs Temp Pulse Pulse Resp BP BP Pulse Ox 06/15/22 21:20 78 06/15/22 22:53 78 18 147/104 H 94 06/15/22 21:50 75 18 95 06/15/22 21:04 36.4 C L 87 16 182/108 H 96 O2 Del Method 06/15/22 21:20 06/15/22 22:53 Room Air 06/15/22 21:50 Room Air 06/15/22 21:04 Room Air PG Care Time/CCT Total # of Minutes Spent Total Time Spent with Patient: Total time spent is greater than 50% in coordination of care (as documented) at patient's floor/unit and/or counseling patient: Coding Level of Care Code 76618 OFFICE CONSULT LVL 4/40M (25 - SIGNIFICANT, SEPARATELY IDENTIFIABLE ) Diagnoses Neck swelling R22.1 CPT Codes LARYNGOSCOPY DIAGNOSTIC FLEXIBLE - 08807 ([id number])
[2022-06-16 00:35] LABS: Adenovirus PCR Not Detected (NotDetected); Bordetella parapertussis PCR Not Detected (NotDetected); Bordetella pertussis PCR Not Detected (NotDetected); Chlamydia pneumoniae PCR Not Detected (NotDetected); Coronavirus 229E PCR Not Detected (NotDetected); Coronavirus CoV-2 (COVID19)PCR Not Detected (NotDetected); Coronavirus HKU1 PCR Not Detected (NotDetected); Coronavirus NL63 PCR Not Detected (NotDetected); Coronavirus OC43PCR Not Detected (NotDetected); Human Metapneumovirus PCR Not Detected (NotDetected); Influenza A PCR Not Detected (NotDetected); Influenza B PCR Not Detected (NotDetected); Mycoplasma pneumoniae PCR Not Detected (NotDetected); Parainfluenza Virus 1 PCR Not Detected (NotDetected); Parainfluenza Virus 2 PCR Not Detected (NotDetected); Parainfluenza Virus 3 PCR Not Detected (NotDetected); Parainfluenza Virus 4 PCR Not Detected (NotDetected); Respiratory Syncytial VirusPCR Not Detected (NotDetected); Rhinovirus/Enterovirus PCR Not Detected (NotDetected)
[2022-06-16 00:36] LABS: C Reactive Protein 0.77 mg/dl (0-0.5)
[2022-06-16] MEDS ORDERED: ONDANSETRON INJ 2 MG/ML 2 ML VIAL IV PRN (01:51)
[2022-06-16] MEDS ORDERED: ACETAMINOPHEN 325 MG TAB PO PRN (01:51)
[2022-06-16] MEDS: AMPICILLIN/SULBACTAM SOD 3,000 MG in 0.9 % SODIUM CHLORIDE 100 ML IV SCH ×2 (06:27→12:37)
--- NOTE | 2022-06-16 07:10 | Hospitalist Progress Note ---
Date of Service June 16, 2022 Assessment & Plan (1) Neck swelling: Plan: 67 year old male w/ PmHx A. fib on Eliquis, HTN, LETI on CPAP, Chronic venous insufficiency, CKD stage III, HLD admitted for retropharyngeal effusion/concern for infection. Neck Swelling: -Blood work unremarkable, vitals stable. -CT Soft tissue neck w/ large retropharyngeal effusion measuring 17mm in thickness without jugular vein thrombosis. -Some elements of fat stranding seen on CT suggestive of possible skin infection at left chest supraclavicular fossa and anterior neck. -Will obtain MRSA nasal swab to check for possible MRSA cellulitis as possible source. -Given 10mg Dexamethasone, 3g Unasyn in the Ed. -ENT bedside scoped patient, recommended continued Unasyn q6h IV, dexamethasone 10mg x3 q8h, hold ACEI. -Can consider steroid taper after 3 doses of dexamethasone. -Questionable origin of swelling, infection vs allergic/reactive vs drug induced. -Appreciate ENT recs, continue antibiotic, steroid, hold ramipril. -Continue to monitor on telemetry. A. Fib: -Patient on Diltiazem 240mg daily and Eliquis 5mg BID at home. -In the setting of holding patient's Ramipril may be necessary to move to BID dosing of the diltiazem. CKD stage III/MOISES: -Creatinine baseline 1.30-1.34, eGFR 54. -This admission creatinine 1.44, eGFR 49.5. -Will hold ACEI as above in setting of worsened kidney function. -Continue to trend with AM BMP. Chronic Venous insufficiency: -Pitting edema on exam. -Ordered SCDs, recommend compression stockings or pants from sports store for outpatient use. Raynaud: -History of Raynaud worse in the winter with cracks at fingers. -Noted, if needed can give moisturizer. HTN: -Hold ACEI as above, continue diltiazem. HLD: -Continue home statin. Depression: -Continue home escitalopram. F/E/N/GI: Regular diet, patient without difficulty eating or drinking. DVT Prophylaxis: Eliquis BID. Code status: Full code. Dispo: Telemetry. (2) Atrial fibrillation: (3) CKD (chronic kidney disease), stage III: (4) Chronic venous insufficiency: (5) Hyperlipidemia: (6) Hypertension: (7) Depression: Admission and Anticipated Discharge Date Admission Date: June 16, 2022 Review of Systems Review of Systems: As per HPI. Physical Exam Physical Exam: General: No acute distress, nonlabored respirations, no stridor Face: normal facial motion Eyes: Extraocular motion is intact. Normal sclera and conjunctiva Ears: External auditory canals are clear. Tympanic membrane is intact and the middle ear is aerated bilaterally. Nose: no external deformity, nares patent. No rhinorrhea or epistaxis. Mild septal deviation right Oral cavity: clear Oropharynx: clear, tonsils absent. Mild fullness posterior pharyngeal wall without erythema Neck: soft, no masses or lymphadenopathy Full ROM without pain. No fluctuance or overlying skin changes Results & Data Results & Data Vital Signs (Past 12 Hours) Vital Signs Temp Pulse Pulse Pulse Resp BP BP 06/16/22 01:30 36.6 C 87 18 144/105 H 06/16/22 01:53 90 06/16/22 01:30 06/16/22 01:30 36.6 C 87 20 144/105 H 06/16/22 00:32 80 16 173/95 H 06/15/22 21:20 78 06/15/22 22:53 78 18 147/104 H 06/15/22 21:50 75 18 06/15/22 21:04 36.4 C L 87 16 182/108 H Pulse Ox O2 Del Method 06/16/22 01:30 94 Room Air 06/16/22 01:53 06/16/22 01:30 Room Air 06/16/22 01:30 94 Room Air 06/16/22 00:32 94 Room Air 06/15/22 21:20 06/15/22 22:53 94 Room Air 06/15/22 21:50 95 Room Air 06/15/22 21:04 96 Room Air Resident Activity Tracking Resident Involvement: Resident Care Provided Care Provided: Adult Hospital Medicine (2) Atrial fibrillation Atrial fibrillation type: permanent Qualified Code(s): I48.2 - Chronic atrial fibrillation (6) Hypertension Hypertension type: essential hypertension Qualified Code(s): I10 - Essential (primary) hypertension
[2022-06-16] MEDS: dexAMETHasone 10 MG in SYRINGE 0 ML IV SCH ×2 (08:48→16:09)
[2022-06-16] MEDS ORDERED: FLUTICASONE PROPIONATE NA SPR 16 GM BTL SCH (09:00)
[2022-06-16] MEDS ORDERED: LORATADINE 10 MG TAB PO SCH (09:00)
[2022-06-16] MEDS ORDERED: MONTELUKAST SODIUM 10 MG TABLET PO SCH (09:00)
[2022-06-16] MEDS ORDERED: APIXABAN 5 MG TABLET PO SCH (09:00)
[2022-06-16] MEDS ORDERED: PNEUMOCOCCAL POLYSACCHARIDES 25 MCG/0.5 ML VIAL/SYR IM ONE (09:00)
[2022-06-16] MEDS ORDERED: LOSARTAN POTASSIUM 25 MG TAB PO SCH (09:00)
[2022-06-16] MEDS ORDERED: dilTIAZem HCL 240 MG CAPCR PO SCH (09:00)
[2022-06-16] MEDS ORDERED: ESCITALOPRAM OXALATE 10 MG TAB PO SCH (09:00)
[2022-06-16 12:46] LABS: Hematocrit (blood only) 54.5 % (42.0-52.0); Hemoglobin 19.5 g/dl (14.0-18.0); Mean Corpuscular Hemoglobin 33.1 pg (25.0-34.0); Mean Corpuscular Hgb Conc 35.8 g/dL (32.0-36.0); Mean Corpuscular Volume 92.4 fL (80.0-100.0); Mean Platelet Volume 8.8 fL (9.4-12.4); Platelet Count 256 K/uL (130-400); RDW Coefficient of Variation 12.8 % (11.5-14.5); RDW Standard Deviation 43.4 fL (36.4-46.3); White Blood Count 10.63 K/ul (4.8-10.8)
[2022-06-16 13:08] LABS: Basophils # (auto) 0.01 K/uL (0-0.2); Basophils % (auto) 0.1 %; Immature Granulocytes # (auto) 0.05 K/uL (0.01-0.20); Immature Granulocytes % (auto) 0.5 %; Lymphocytes # (auto) 0.83 K/uL (1.2-3.4); Lymphocytes % (auto) 7.8 %; Monocytes # (auto) 0.06 K/uL (0.11-0.59); Monocytes % (auto) 0.6 %; Neutrophils # (auto) 9.68 K/uL (1.40-6.50)
[2022-06-16 13:10] LABS: Anion Gap 10 (3-11); BUN Creatinine Ratio 18.9 (10-20); Blood Urea Nitrogen 21 mg/dl (6-23); Calcium 9.5 mg/dl (8.6-10.3); Carbon Dioxide 24 mmol/L (21-32); Chloride 102 mmol/L (98-107); Creatinine Clr Calc Pharmacy 82.1 ml/min; Est GFR (African American) 78.7 ml/min; Est GFR (Non-African American) 67.9 ml/min; Glucose 177 mg/dl (70-99(Fasting)); Sodium 136 mmol/L (136-145)
--- NOTE | 2022-06-16 16:15 | Discharge Summary ---
Date of Service June 16, 2022 Admission HPI Per Admitting Provider Adrian is a 67 year old male w/ PmHx A. fib on Eliquis, HTN, LETI on CPAP, Chronic venous insufficiency, CKD stage III, HLD coming into the hospital for a day of throat swelling/distention. Patient states that he has a history of chronic sinus congestion and postnasal drip, he's seen ENT in the past years ago but mainly follows with PCP. Patient states he was at his usual level of sinus congestion and postnasal drip when the night prior he started to notice he was giving off sonic reverberations ede to snoring when tilting his head forward. He decided to take Mucinex at that time to help clear the mucous in the area. He stated throughout the day earlier he also noticed increased neck distention. He states his neck is as wide as his head when it usually is not. He had not had any exposure to any new foods, no tick exposures or grassland exposures. He denies any birds, cats, or dogs at home. In the ED CBC, CMP, procal unremarkable. CT soft tissue neck showed large retropharyngeal effusion measuring up to 17mm in thickness without evidence of jugular vein thrombosis. Nonspecific fat stranding of neck and left chest noted. He was given a dose of dexamethasone 10mg and 3g Unasyn. Dr. Simons had evalu ated him as well with bedside scope. Admission Exam Per Admitting Provider Constitutional: WD/WN, vitals as above Neck: Retropharyngeal swelling palpable from lateral neck. No pronounced lymphadenopathy elsewhere. Respiratory: normal respiratory effort, lungs clear to auscultation Cardiovascular: Rate/Rhythm: + irregularly irregular Heart Sounds: normal S1 and normal S2 2+ pitting edema at lower extremities. Gastrointestinal (Abdomen): normal bowel sounds, soft, nontender, no hepatosplenomegaly Skin: Decreased color to the nailbeds (patient w/ hx Reynauds) Psychiatric: A+Ox3, euthymic affect Principal Diagnosis Angioedema Discharge Exam Gen: NAD, alert, interactive, speaking in full, clear stentences HEENT: Supple, no TTP, no LAD, no thyromegaly, no JVD - Swelling palpable on lateral neck, bilaterally - Oropharynx: No evidence of oropharyngeal edema or erythema, view largely obstructed by patient's tongue (despite attempts to depress) Resp:Non-labored, no wheezing/rhonchi/rales, CTAB CV: irregularly irregular, normal S1/S2, no M/R/G Abd: Soft, non-distended, no TTP, normoactive bowels, no masses Extr: 2+ dp bilaterally, no edema Skin: No rashes lesions or erythema Discharge Data Allergies Allergy/AdvReac Type Severity Reaction Status Date / Time nitroglycerin AdvReac Severe DECREASED Verified 06/15/22 21:35 BP-CAUSED SYNCOPE Consultations 06/16/22 00:30 ED Decision to Admit Stat 06/16/22 01:51 Consult Otolaryngology (Head and Neck) Routine Ordered Studies 06/15/22 21:52 CT soft tissue neck w con Stat Hospital Course (1) Neck swelling: (2) Atrial fibrillation: (3) CKD (chronic kidney disease), stage III: (4) Chronic venous insufficiency: (5) Hyperlipidemia: (6) Hypertension: (7) Depression: (8) Angioedema: Plan 67 year old male w/ PmHx A. fib on Eliquis, HTN, LETI on CPAP, Chronic venous insufficiency, CKD stage III, HLD admitted for retropharyngeal effusion/concern for infection. Neck Swelling: -Blood work unremarkable, vitals stable. -CT Soft tissue neck w/ large retropharyngeal effusion measuring 17mm in thickness without jugular vein thrombosis. -Some elements of fat stranding seen on CT suggestive of possible skin infection at left chest supraclavicular fossa and anterior neck. -Will obtain MRSA nasal swab to check for possible MRSA cellulitis as possible source. -Given 10mg Dexamethasone, 3g Unasyn in the Ed. -ENT bedside scoped patient, recommended continued Unasyn q6h IV, dexamethasone 10mg x3 q8h, hold ACEI. -Can consider steroid taper after 3 doses of dexamethasone. -Questionable origin of swelling, infection vs allergic/reactive vs drug induced. -Appreciate ENT recs, continue antibiotic, steroid, hold ramipril. --- Suspect that most likely etiology of patient's edema was angioedema a/w MIRANDA inhibitor use. --- No supporting evidence for infection (no leukocytosis, Procal negative, minimal CRP elevation), will discontinue antibiotics --- Patient notably improved following administration of steroids, will plan additional day on current steroid dose (Decadron 10 mg q8h), followed by taper --- Patient advised to return if symptoms recur, he has difficulty breathing, his voice changes, or he experiences a stridor A. Fib: -Patient on Diltiazem 240mg daily and Eliquis 5mg BID at home. -In the setting of holding patient's Ramipril may be necessary to move to BID d osing of the diltiazem. CKD stage III/MOISES: -Creatinine baseline 1.30-1.34, eGFR 54. -This admission creatinine 1.44, eGFR 49.5. -Will hold ACEI as above in setting of worsened kidney function. -Continue to trend with AM BMP. Chronic Venous insufficiency: -Pitting edema on exam. -Ordered SCDs, recommend compression stockings or pants from [employer] for outpatient use. Raynaud: -History of Raynaud worse in the winter with cracks at fingers. -Noted, if needed can give moisturizer. HTN: -Hold ACEI as above, continue diltiazem. --- Discontinued Ramipril, started patient in Losartan 25 mg PO daily --- Patient advised to follow his blood pressures as an outpatient (at least BID) and bring to follow up with his physician HLD: -Continue home statin. Depression: -Continue home escitalopram. F/E/N/GI: Regular DVT Prophylaxis: Eliquis BID. Code status: Full code. Dispo: Home Total Time Total Time Spent Total Time Spent (In Minutes): <30 Discharge Plan Discharge Items Patient Disposition: Home - Self-Care Reason For Visit: NECK DISTENTION Discharge Diagnosis: Angioedema Activity: Per Instructions section Non-emergency contact: Primary Care Provider Call non-emergency contact if: you have any medication questions and your symptoms worsen Follow-up/Referrals: Suhas Dewey MD [Primary Care Provider] - Diet: Regular Addtl Attending Provider Instructions: You were admitted to the hospital for an episode of neck swelling which was found to be consistent with Angioedema. Angioedema is a condition, which often presents with lip or tongue swelling, but can also present with throat swelling, which is most commonly associated with MIRANDA Inhibitor use. This reaction can occur at any period during the use of the MIRANDA Inhibitor, whether it be the first day, months, or years into use. Ultimately, this medication was discontinued and replaced with Losartan 25 mg by mouth daily. While you were in the hospital you were treated with antibiotics and steroids. You were found to not have any evidence of infection, so your antibitoics were discontinued. You will be sent home with Decadron (a steroid). Please take 12 mg tomorrow, 8 mg on Sunday, and 4 mg on Sunday. A discharge summary will be sent to your primary care physician to ensure continuity of care. Please bring this discharge summary with you to your next office appointment so that your provider can review it at that time. Follow-up appointments: - Make a follow-up appointment with your PCP within the next week. Medications: - New Medications: * Losartan 25 mg PO BID * Decadron 12 mg PO Sunday, 8 mg PO Sunday, 4 mg PO Sunday Contact your Primary Care Provider if you experience: - Difficulty following your treatment plan Call 911 or go to the emergency department if you experience: - Hoarse voice, stridor, difficulty breathing, or difficulty swallowing - Sudden, severe abdominal pain or nausea/vomiting - Severe chest pain, or chest pain that radiates (moves) to your jaw or arm - Sudden, severe shortness of breath or difficulty breathing It was a pleasure to be a part of your care, Dr. Monique Redman Pending Studies at Discharge: No Stand-Alone Forms: My [facility], Smoking Cessation Medications and DC Order Prescriptions: New losartan 25 mg Tablet 25 mg PO QAM 30 Days Qty: 30 0RF dexamethasone 4 mg tablet 4 mg PO DAILY 3 Days Qty: 6 0RF Rx Instructions: Please take 12 mg on Sunday, 8 mg on Sunday, and 4 mg on Sunday Continued clotrimazole-betamethasone 1-0.05 % cream 1 applic topical BID PRN (Reason: intertrigo) Qty: 45 0RF ammonium lactate 12 % cream 1 appln topical BID PRN (Reason: Rash) Qty: 1 ketoconazole 2 % cream 1 appln topical BID PRN (Reason: Rash) triamcinolone acetonide 0.1 % cream 1 applic topical DAILY PRN (Reason: Skin Irritation) loratadine 10 mg tablet 10 mg PO QAM Qty: 30 hydrocodone-homatropine 5-1.5 mg/5 mL syrup 5 ml PO Q6H PRN (Reason: cough) Qty: 473 0RF Rx Instructions: take 1-2 teaspoons sildenafil 100 mg tablet 100 mg PO DAILY PRN (Reason: Sexual Activity) Qty: 30 2RF diltiazem HCl 240 mg capsule,extended release 24 hr 240 mg PO DAILY Rx Instructions: TAKE 1 CAPSULE DAILY FOR ATRIAL FIBRILLATION montelukast 10 mg tablet 10 mg PO DAILY Rx Instructions: TAKE 1 TABLET DAILY fluticasone propionate 50 mcg/actuation spray,suspension 2 spray intranasal DAILY Rx Instructions: USE 2 SPRAYS NASALLY DAILY escitalopram oxalate 10 mg tablet 10 mg PO DAILY Rx Instructions: TAKE 1 TABLET DAILY rosuvastatin 10 mg tablet 10 mg PO HS Eliquis 5 mg tablet 5 mg PO BID Rx Instructions: TAKE 1 TABLET TWICE A DAY Discontinued ramipril 5 mg capsule 10 mg PO DAILY Rx Instructions: TAKE 2 CAPSULES (10 MG) DAILY Discharge Orders: Discharge Order (Routine); Ordered 06/16/22 Ordered By: Monique Redman Admission Data Admit Date/Time: 06/16/22 00:38 Attending Provider: Tommy Armijo Admit Provider: Antoine Miranda Primary Care Provider: Suhas Dewey Other Providers: Mehul Anthony ; Darryl Simons Other Interventions: Discharge Summary Assessment (RN) Last Done: 06/16/22 17:21 Supervising Physician Co-Signing Physician Notes I personally examined the patient and verified all estrada points of history and exam, discussed case, and agree with decision making with Dr Redman feeling better breathing better no regression overall showing improvement would like to go home. dr redman reached out to ENT coverage who also felt ok to go home vitals noted nad heent nc at mmm no stridor no respiratory distress no hot potato voice no focal neuro deficits throat swelling - most likely angioedema. sudden onset no infectious symptoms no white count/fever/leukocytosis/procal elevation/CRP elevation - no clear need for abx. home. stop ACEi, switch to ARB. steroids. outpt allergy f/u Resident Activity Tracking Resident Involvement: Resident Care Provided Care Provided: Adult Hospital Medicine
--- NOTE | 2022-06-16 18:10 | Billing Data ---
Date of Service June 16, 2022 Coding Level of Care Code 65577 IN/OBS DISCH 30 MIN/LESS
[2022-06-16] MEDS ORDERED: ROSUVASTATIN CALCIUM 10 MG TAB PO SCH (21:00)
--- NOTE | 2022-06-17 02:50 | Billing Data ---
Date of Service June 17, 2022 Coding Level of Care Code 98362 INT INP/OBS CARE
== END 2022-06-16 17:40 | disposition home or self-care (01) | DRG 916 ==
LOC: ED 21:00 → SUATTDRO 06-16 00:38 → 2N 06-16 00:38